=== PATIENT | female | born 1950 | race Caucasian/White ===

== ENCOUNTER 2018-08-06 10:54 | Outpatient (REF) | payer MEDICARE, SELFPAY ==
[2018-08-06 19:33] LABS: Anion Gap 11.2 mmol/L (3-11); BUN 18 mg/dL (7-18); CO2 26.8 mmol/L (21.0-32.0); CREATININE 0.78 mg/dL (0.55-1.02); Calcium 8.9 mg/dL (8.5-10.1); Chloride 103 mmol/L (98-107); Glucose 189 mg/dL (70-100); Potassium 4.2 mmol/L (3.5-5.1); Sodium 141 mmol/L (136-145)
== END 2018-08-06 11:14 ==
LOC: NCHCN 10:54
PROVIDERS: PCP Physician Assistant; Visit Provider Physician Assistant Medical
DX: E11.9 Type 2 diabetes mellitus without complications (principal)
CPT/HCPCS: 80048

== ENCOUNTER 2018-11-14 11:38 | Outpatient (REF) | payer MEDICARE, SELFPAY ==
[2018-11-14 20:02] LABS: ALT 38 U/L (12-78); AST 25 U/L (15-37); Albumin 3.5 g/dL (3.4-5.0); Alkaline Phosphatase 129 U/L (46-116); Anion Gap 13.5 mmol/L (3-11); BUN 14 mg/dL (7-18); Bilirubin, Total 0.6 mg/dL (0.2-1.0); CO2 22.5 mmol/L (21.0-32.0); CREATININE 0.85 mg/dL (0.55-1.02); Calcium 8.9 mg/dL (8.5-10.1); Calculated LDL 125 mg/dL; Chloride 102 mmol/L (98-107); Cholesterol 211 mg/dL (50-200); Glucose 308 mg/dL (70-100); HDL Cholesterol 40 mg/dL (40-60); Potassium 4.1 mmol/L (3.5-5.1); Sodium 138 mmol/L (136-145); Total Protein 6.9 g/dL (6.4-8.2); Triglyceride 230 mg/dL (30-150)
== END 2018-11-14 11:58 ==
LOC: NCHCN 11:38
PROVIDERS: PCP Physician Assistant; Visit Provider Nurse Practitioner Family
DX: E11.9 Type 2 diabetes mellitus without complications (principal); E78.5 Hyperlipidemia, unspecified
CPT/HCPCS: 80053; 80061; 83721

== ENCOUNTER 2019-01-23 12:44 | Outpatient (REF) | payer MEDICARE, SELFPAY ==
[2019-01-23 20:55] LABS: COMMENT (LAB VIEW ONLY) 44.16 mg/dL; Microalb ug/mg Crea 39.4 ug/mg Cr
== END 2019-01-23 13:04 ==
LOC: NCHCN 12:44
PROVIDERS: PCP Physician Assistant; Visit Provider Nurse Practitioner Family
DX: E11.9 Type 2 diabetes mellitus without complications (principal)
CPT/HCPCS: 82043; 82570

== ENCOUNTER 2019-11-11 14:28 | Outpatient (REF) | payer MEDICARE, SELFPAY ==
[2019-11-11 19:35] LABS: Hemoglobin A1C 8.5 % (3.8-5.6)
[2019-11-11 19:37] LABS: ALT 19 U/L (14-59); AST 15 U/L (15-37); Albumin 3.5 g/dL (3.4-5.0); Alkaline Phosphatase 129 U/L (46-116); BUN 12 mg/dL (7-18); Bilirubin, Total 0.5 mg/dL (0.2-1.0); CREATININE 0.66 mg/dL (0.55-1.02); Calcium 9.1 mg/dL (8.5-10.1); Calculated LDL 128 mg/dL (<100); Chloride 105 mmol/L (98-107); Cholesterol 207 mg/dL (<200); Glucose 221 mg/dL (74-106); HDL Cholesterol 43 mg/dL (40-60); Potassium 4.1 mmol/L (3.5-5.1); Sodium 141 mmol/L (136-145); Total Protein 6.5 g/dL (6.4-8.2); Triglyceride 181 mg/dL (<150)
[2019-11-11 19:58] LABS: COMMENT (LAB VIEW ONLY) 122.84 mg/dL; Microalb ug/mg Crea 20.9 ug/mg Cr
== END 2019-11-11 14:48 ==
LOC: NCHCN 14:28
PROVIDERS: PCP Physician Assistant; Visit Provider Nurse Practitioner Family
DX: E11.9 Type 2 diabetes mellitus without complications (principal); I10 Essential (primary) hypertension; E78.5 Hyperlipidemia, unspecified
CPT/HCPCS: 80053; 80061; 82043; 82570; 83036

== ENCOUNTER 2019-12-31 21:36 | Outpatient (REF) | payer MEDICARE, SELFPAY ==
[2019-12-31 20:54] LABS: Hemoglobin A1C 8.6 % (<5.7)
[2019-12-31 20:58] LABS: Calculated LDL 126 mg/dL (<100); Cholesterol 199 mg/dL (<200); HDL Cholesterol 50 mg/dL (40-60); Triglyceride 115 mg/dL (<150)
== END 2019-12-31 21:56 ==
LOC: NCHCN 21:36
PROVIDERS: PCP Physician Assistant; Visit Provider Nurse Practitioner Family
DX: I10 Essential (primary) hypertension (principal); E11.9 Type 2 diabetes mellitus without complications
CPT/HCPCS: 80061; 83036

== ENCOUNTER 2020-12-02 19:13 | Outpatient (REF) | payer MEDICARE, SELFPAY ==
[2020-12-02 19:52] LABS: HCT 43.5 % (36.0-46.0); HGB 14.2 g/dL (11.2-15.7); MCH 28.5 pg (27.0-33.0); MCHC 32.6 % (32.0-36.0); MCV 87.2 fL (80-95); MPV 10.4 fL (8.0-11.0); Platelet Count 189 10^3/uL (130-400); RBC 4.99 10^6/uL (3.93-5.22); RDW 12.7 % (11.7-14.6); RDW-SD 40.7 fL
[2020-12-02 20:59] LABS: ALT 23 U/L (14-59); AST 18 U/L (15-37); Albumin 3.6 g/dL (3.4-5.0); Alkaline Phosphatase 116 U/L (46-116); Anion Gap 11.6 mmol/L (3-11); BUN 9 mg/dL (7-18); Bilirubin, Total 0.5 mg/dL (0.2-1.0); CO2 24.4 mmol/L (21.0-32.0); CREATININE 0.7 mg/dL (0.55-1.02); Calcium 8.9 mg/dL (8.5-10.1); Chloride 109 mmol/L (98-107); Glucose 120 mg/dL (74-106); Potassium 3.8 mmol/L (3.5-5.1); Sodium 145 mmol/L (136-145); Total Protein 6.6 g/dL (6.4-8.2)
== END 2020-12-02 19:14 | disposition home or self-care (01) ==
LOC: NCHCN 19:13
PROVIDERS: PCP Physician Assistant; Visit Provider Internal Medicine
DX: E11.9 Type 2 diabetes mellitus without complications (principal); I10 Essential (primary) hypertension
CPT/HCPCS: 80053; 85027

== ENCOUNTER 2021-09-16 14:46 | Outpatient (REF) | payer MEDICARE, SELFPAY ==
[2021-09-16 18:59] LABS: HCT 44.2 % (36.0-46.0); HGB 14.6 g/dL (11.2-15.7); MCH 28.6 pg (27.0-33.0); MCV 87 fL (80-95); MPV 10.3 fL (8.0-11.0); Platelet Count 183 10^3/uL (130-400); RBC 5.11 10^6/uL (3.93-5.22); RDW 12.3 % (11.7-14.6); RDW-SD 39.2 fL; WBC 6.67 10^3/uL (4.4-10.8)
[2021-09-16 19:19] LABS: ALT 26 U/L (14-59); AST 24 U/L (15-37); Albumin 3.6 g/dL (3.4-5.0); Alkaline Phosphatase 103 U/L (46-116); Anion Gap 8.4 mmol/L (3-11); BUN 9 mg/dL (7-18); Bilirubin, Total 0.6 mg/dL (0.2-1.0); CO2 28.6 mmol/L (21.0-32.0); CREATININE 0.8 mg/dL (0.55-1.02); Calcium 8.7 mg/dL (8.5-10.1); Chloride 104 mmol/L (98-107); Glucose 197 mg/dL (74-106); Lipase 130 U/L (73-393); Potassium 3.5 mmol/L (3.5-5.1); Sodium 141 mmol/L (136-145); Total Protein 6.4 g/dL (6.4-8.2)
== END 2021-09-16 14:47 | disposition home or self-care (01) ==
LOC: NCHCN 14:46
PROVIDERS: PCP Physician Assistant; Visit Provider Internal Medicine
DX: R10.9 Unspecified abdominal pain (principal)
CPT/HCPCS: 80053; 83690; 85027

== ENCOUNTER 2022-10-02 19:05 | Outpatient (REF) | payer MEDICARE, SELFPAY ==
[2022-10-02 19:06] LABS: HCT 43.4 % (36.0-46.0); HGB 14.5 g/dL (11.2-15.7); MCH 29.2 pg (27.0-33.0); MCHC 33.4 % (32.0-36.0); MCV 87 fL (80-95); MPV 10.3 fL (8.0-11.0); Platelet Count 176 10^3/uL (130-400); RBC 4.97 10^6/uL (3.93-5.22); RDW 12.1 % (11.7-14.6); RDW-SD 38.8 fL; WBC 6.33 10^3/uL (4.4-10.8)
[2022-10-02 19:30] LABS: ALT 18 U/L (14-59); AST 23 U/L (15-37); Albumin 3.9 g/dL (3.4-5.0); Alkaline Phosphatase 76 U/L (46-116); Anion Gap 11.9 mmol/L (3-11); BUN 10 mg/dL (7-18); Bilirubin, Total 0.8 mg/dL (0.2-1.0); CO2 26.1 mmol/L (21.0-32.0); CREATININE 0.9 mg/dL (0.55-1.02); Calcium 9.1 mg/dL (8.5-10.1); Calculated LDL 121 mg/dL (<100); Chloride 105 mmol/L (98-107); Cholesterol 200 mg/dL (<200); Estimated GFR 67.08 (mL/min/1.73m2); Glucose 159 mg/dL (74-106); HDL Cholesterol 67 mg/dL (40-60); Sodium 143 mmol/L (136-145); TSH 2.35 uIU/mL (0.36-3.74); Triglyceride 64 mg/dL (<150)
[2022-10-02 20:38] LABS: Potassium 2.9 mmol/L (3.5-5.1)
== END 2022-10-02 19:06 | disposition home or self-care (01) ==
LOC: NCHCN 19:05
PROVIDERS: PCP Physician Assistant; Visit Provider Internal Medicine
DX: E11.9 Type 2 diabetes mellitus without complications (principal); I10 Essential (primary) hypertension; R63.4 Abnormal weight loss
CPT/HCPCS: 80053; 80061; 85027; 84443

== ENCOUNTER 2023-06-29 17:58 | Outpatient (REF) | payer MEDICARE, SELFPAY ==
[2023-06-29 19:13] LABS: HCT 41.6 % (36.0-46.0); HGB 13.9 g/dL (11.2-15.7); MCH 29.4 pg (27.0-33.0); MCHC 33.4 % (32.0-36.0); MCV 88 fL (80-95); MPV 10.6 fL (8.0-11.0); Platelet Count 159 10^3/uL (130-400); RBC 4.72 10^6/uL (3.93-5.22); RDW 12.9 % (11.7-14.6); RDW-SD 42.1 fL; WBC 5.12 10^3/uL (4.4-10.8)
[2023-06-29 19:40] LABS: ALT 26 U/L (14-59); AST 37 U/L (15-37); Albumin 3.8 g/dL (3.4-5.0); Alkaline Phosphatase 106 U/L (46-116); Anion Gap 10.7 mmol/L (3-11); BUN 17 mg/dL (7-18); Bilirubin, Total 0.6 mg/dL (0.2-1.0); CO2 28.3 mmol/L (21.0-32.0); CREATININE 0.9 mg/dL (0.55-1.02); Calcium 9.2 mg/dL (8.5-10.1); Chloride 105 mmol/L (98-107); Estimated GFR 67.08 (mL/min/1.73m2); Glucose 170 mg/dL (74-106); Potassium 3.3 mmol/L (3.5-5.1); Sodium 144 mmol/L (136-145); TSH 2.81 uIU/Ml (0.36-3.74); Total Protein 7.1 g/dL (6.4-8.2)
[2023-06-29 19:45] LABS: COMMENT (LAB VIEW ONLY) 90.08 mg/dL; Microalb ug/mg Crea 6.7 ug/mg Cr
== END 2023-06-29 17:59 | disposition home or self-care (01) ==
LOC: NCHCN 17:58
PROVIDERS: PCP Physician Assistant; Visit Provider Internal Medicine
DX: R63.4 Abnormal weight loss (principal)
CPT/HCPCS: 80053; 85027; 82043; 82570; 84443